=== PATIENT | female | born 1945 | race Caucasian/White ===

== ENCOUNTER 2017-06-30 07:13 | Day surgery (SDC) | payer MEDICARE, BC ==
[2017-06-30] MEDS ORDERED: fentaNYL 100 MCG/2 ML SDV ONE (07:48)
[2017-06-30] MEDS ORDERED: Propofol 200 MG/20 ML SDV ONE (07:48)
[2017-06-30] MEDS ORDERED: Lactated Ringers 1,000 ML IV SCH (08:15)
[2017-06-30 11:49] VITALS: BP 150/75
--- NOTE | 2017-06-30 14:07 | OR ---
DATE OF PROCEDURE: 06/30/2017 PREOPERATIVE DIAGNOSES: History of tubular adenoma, diverticulosis. POSTOPERATIVE DIAGNOSES: Diverticulosis, history of tubular adenoma. PROCEDURE: Colonoscopy to the cecum. ANESTHESIA: IV anesthesia with monitored anesthesia care. INDICATION: This 72-year-old white female is referred for a colonoscopy. She has history of a tubular adenoma which was small and removed about three years ago. I counseled her for a colonoscopy with possible biopsy and/or polypectomy including risks and alternatives, and she gave her informed consent to proceed. DESCRIPTION OF PROCEDURE: The patient was placed in the left lateral decubitus position. IV anesthesia was administered by the Anesthesia Service. Time-out was held. A rectal exam was performed, which was unremarkable. The flexible video Olympus colonoscope was introduced through her anus, up her rectum, and out her colon all way to the cecum. This was difficult to reach. We had to apply abdominal compression with the patient in both the left lateral and supine positions. Once the cecum was reached, the scope was slowly withdrawn, examining the mucosa throughout. We saw a few scattered left-sided diverticula. There was no bleeding or inflammation associated with them. The scope was retroflexed in the rectum with the distal rectum appearing unremarkable. The scope was straightened and removed. She tolerated the procedure well. We saw no neoplastic lesions. Buck Jenkins MD /[id number]
== END 2017-06-30 11:40 | disposition home or self-care (01) ==
LOC: JP.SDS 07:13
PROVIDERS: ATTEND Surgery
DX: Z12.11 Encounter for screening for malignant neoplasm of colon (principal); K57.30 Diverticulosis of large intestine without perforation or abscess without bleeding; Z85.038 Personal history of other malignant neoplasm of large intestine; I10 Essential (primary) hypertension; E11.9 Type 2 diabetes mellitus without complications; Z87.891 Personal history of nicotine dependence; Z98.890 Other specified postprocedural states; Z98.51 Tubal ligation status
CPT/HCPCS: G0105; J2704; J3010; J7120

== ENCOUNTER 2022-08-13 06:16 | Day surgery (SDC) | payer MEDICARE, BC ==
[2022-08-13] MEDS ORDERED: Sodium Chloride 0.9% 1,000 ML IV SCH (07:00)
[2022-08-13] MEDS ORDERED: fentaNYL 100 MCG/2 ML SDV ONE (07:37)
[2022-08-13] MEDS ORDERED: Propofol 200 MG/20 ML SDV ONE (07:37)
[2022-08-13 09:17] VITALS: PULSE 49
[2022-08-13 09:26] VITALS: BP 146/72
== END 2022-08-13 09:35 | disposition home or self-care (01) ==
LOC: JP.SDS 06:16
PROVIDERS: ATTEND Surgery
DX: Z12.11 Encounter for screening for malignant neoplasm of colon (principal); K57.30 Diverticulosis of large intestine without perforation or abscess without bleeding; I10 Essential (primary) hypertension; E03.9 Hypothyroidism, unspecified; R73.03 Prediabetes; M81.0 Age-related osteoporosis without current pathological fracture; Z87.891 Personal history of nicotine dependence; Z86.010 Personal history of colon polyps
CPT/HCPCS: G0105; J2704; J3010; J7030